=== PATIENT | female | born 1980 | race Caucasian/White ===

== ENCOUNTER 2017-08-16 16:55 | Emergency (ER) | payer OTHER, SELFPAY ==
[2017-08-16 17:08] VITALS: BP 137/79; PULSE 85; RESP 20; TEMP 36.9; O2SAT 98; BMI 22.2
--- NOTE | 2017-08-16 17:20 | ED.SOB ---
HPI - SOB/Dyspnea <Hui Fermin PA-C - Last Filed: 08/16/17 21:48> General Chief Complaint: Shortness of Breath/Dyspnea Stated Complaint: SOB,THROAT SCRATCHY AND TIGHT, 17WKS PREG Time Seen by Provider: 08/16/17 17:01 Source: patient Mode of arrival: ambulatory Limitations: no limitations History of Present Illness This 37-year-old female is 17 weeks , and presents to the ED today with what she describes as some pelvic cramping without bleeding. She states that she has had some tightness and pressure through her but these cramps are little bit stronger. She has not had any spotting. She states that she has also had a more persistent rash today than usual (she gets frequent hives and has had them intermittently in the last couple of weeks close). She has also had persistent itching all over, and this usually resolves quickly. She states that she is not wheezing or having any chest pain but she feels sort of an air hunger sensation like she can't quite get a deep breath. All of this started this morning. She states that she had 1 fever up to 102, but nothing persistent and this is not unusual for her. She denies any new back pain. She denies any urinary symptoms. She states that she is undergoing rheumatologic workup for her fevers, rashes, and joint pain, no specific diagnosis at this point. She has not had any new pain or swelling in the extremities today including her calves. She states that she had a similar episode that 1 of her appointments at and had high blood pressure at the time so is being monitored for preeclampsia and was started on baby aspirin once a day which she is currently taking. Has stopped other medications. She states that she has not been found to have any clotting disorder, no family history of rheumatologic disease or blood clotting disorders. She states that her symptoms started sometime after her service and had never had any prior. Related Data Home Medications Medication Instructions Recorded Confirmed vit-iron fum-folic ac 0.5 tab PO BID #0 05/22/17 08/16/17 [Mynatal] aspirin [Aspir-81] 81 mg PO DAILY 08/16/17 08/16/17 Previous Rx's Medication Instructions Recorded cephalexin [Keflex] 500 mg PO Q6H 4 Days #16 cap 08/16/17 Allergies Allergy/AdvReac Type Severity Reaction Status Date / Time bee pollen [BEE POLLEN] Allergy Severe Anaphylaxis Verified 08/16/17 17:13 hydromorphone [From DILAUDID] AdvReac Severe Rash Verified 08/16/17 17:13 ondansetron AdvReac Severe Rash Verified 08/16/17 17:13 [From ZOFRAN ( HYDROCHLORIDE)] OLIVE Allergy Unknown Uncoded 08/16/17 17:13 Review of Systems <Hui Fermin PA-C - Last Filed: 08/16/17 21:48> Review of Systems All systems reviewed & are unremarkable except as noted in HPI and below Exam <Hui Fermin PA-C - Last Filed: 08/16/17 21:48> Narrative Exam Narrative: GENERAL APPEARANCE: Patient sitting comfortably, in no distress. HEENT: PERRL, EOMI, normal oropharynx NECK: Supple, trachea midline, no masses LUNGS: Clear to auscultation bilaterally. No cough on exam. HEART: Rate and rhythm regular, normal S1 and S2, no S3 or S4. ABDOMEN: Soft, nondistended, bowel sounds present x 4 quadrants, no masses palpable, no hepatosplenomegaly. Mild generalized lower quadrant tenderness without guarding or rebound, no CVAT EXTREMITIES: No edema, no cyanosis. No calf tenderness DERMATOLOGIC: Flushing over the mid anterior central chest and neck. None on the face, elsewhere on the trunk or extremities NEUROLOGIC: Alert and oriented with normal speech and coordination Initial Vital Signs Initial Vital Signs: Vital Signs Temperature 98.4 F 08/16/17 17:08 Pulse Rate 85 08/16/17 17:08 Respiratory Rate 20 08/16/17 17:08 Blood Pressure 137/79 H 08/16/17 17:08 Pulse Oximetry 98 08/16/17 17:08 <Liberty Arevalo DO - Last Filed: 08/17/17 07:56> Initial Vital Signs Initial Vital Signs: Vital Signs Temperature 98.4 F 08/16/17 17:08 Pulse Rate 85 08/16/17 17:08 Respiratory Rate 20 08/16/17 17:08 Blood Pressure 137/79 H 08/16/17 17:08 Pulse Oximetry 98 08/16/17 17:08 Course <Hui Fermin PA-C - Last Filed: 08/16/17 21:48> Hospital Course: Patient reported feeling significantly improved after fluids and Benadryl. Her neck and chest rash had largely resolved and she was able to ambulate comfortably without dyspnea. Suspect this is likely related to some type of exposure given the ongoing symptoms that she has had. Also suspect that given her sizable fibroid as well as enlarging , this may create more pelvic pressure and exacerbate typical pain. I think unlikely that her asymptomatic bacteriuria contributes to this but we will start antibiotic. She feels comfortable monitoring at home and agrees to return if any acutely worsening symptoms again. Dr. Arevalo evaluated patient as well today and was agreeable with this treatment plan. Orders Ordered: Discontinued Medications Cefazolin Sodium (Keflex) 2 bottle MISC SEEINSTR ONE Stop: 08/16/17 19:40 Last Admin: 08/16/17 19:46 Dose: 2 bottle Diphenhydramine HCl (Benadryl) 25 mg IV NOW ONE Stop: 08/16/17 17:21 Last Admin: 08/16/17 17:37 Dose: 25 mg Fosfomycin Tromethamine (Monurol) 3 gm PO NOW ONE Stop: 08/16/17 19:28 Last Admin: 08/16/17 19:45 Dose: Sodium Chloride (Normal Saline 0.9%) 1,000 mls @ 1,000 mls/hr IV BOLUS ONE Stop: 08/16/17 18:19 Last Infusion: 08/16/17 19:15 Dose: 0 mls/hr Admin: 08/16/17 17:37 Dose: 1,000 mls/hr Sodium Chloride (Normal Saline 0.9%) 1,000 mls @ 1,000 mls/hr IV BOLUS ONE Stop: 08/16/17 19:14 Last Admin: 08/16/17 19:44 Dose: Vital Signs - 8 hr 08/16/17 17:08 08/16/17 17:42 08/16/17 18:02 Temperature 98.4 F Pulse Rate 85 90 76 Respiratory Rate 20 18 Blood Pressure 137/79 H Blood Pressure [Left Arm] 118/70 114/71 Pulse Oximetry 98 100 100 08/16/17 19:36 Temperature Pulse Rate 80 Respiratory Rate 18 Blood Pressure Blood Pressure [Left Arm] 114/71 Pulse Oximetry 100 <Liberty Arevalo, - Last Filed: 08/17/17 07:56> Orders Ordered: Discontinued Medications Cefazolin Sodium (Keflex) 2 bottle MISC SEEINSTR ONE Stop: 08/16/17 19:40 Last Admin: 08/16/17 19:46 Dose: 2 bottle Diphenhydramine HCl (Benadryl) 25 mg IV NOW ONE Stop: 08/16/17 17:21 Last Admin: 08/16/17 17:37 Dose: 25 mg Fosfomycin Tromethamine (Monurol) 3 gm PO NOW ONE Stop: 08/16/17 19:28 Last Admin: 08/16/17 19:45 Dose: Sodium Chloride (Normal Saline 0.9%) 1,000 mls @ 1,000 mls/hr IV BOLUS ONE Stop: 08/16/17 18:19 Last Infusion: 08/16/17 19:15 Dose: 0 mls/hr Admin: 08/16/17 17:37 Dose: 1,000 mls/hr Sodium Chloride (Normal Saline 0.9%) 1,000 mls @ 1,000 mls/hr IV BOLUS ONE Stop: 08/16/17 19:14 Last Admin: 08/16/17 19:44 Dose: Vital Signs - 8 hr 08/16/17 17:08 08/16/17 17:42 08/16/17 18:02 Temperature 98.4 F Pulse Rate 85 90 76 Respiratory Rate 20 18 Blood Pressure 137/79 H Blood Pressure [Left Arm] 118/70 114/71 Pulse Oximetry 98 100 100 08/16/17 19:36 Temperature Pulse Rate 80 Respiratory Rate 18 Blood Pressure Blood Pressure [Left Arm] 114/71 Pulse Oximetry 100 MDM - SOB/Dyspnea <Hui Fermin PA-C - Last Filed: 08/16/17 21:48> Lab Data Attestation: I reviewed the patient's lab results. Result diagrams: 08/16/17 17:35 08/16/17 17:35 Lab Results 08/16/17 08/16/17 Range/Units 17:35 17:35 WBC 10.0 (4.5-11.0) X10^3/uL RBC 3.88 L (4.0-5.2) X10^6/uL Hgb 12.2 (12.0-16.0) g/dL Hct 34.4 L (36-46) % MCV 88.7 (80-100) fL MCH 31.5 (26-34) PG MCHC 35.5 (30-36) % RDW 13.2 (11.6-14.8) % Plt Count 221 (150-400) X10^3/uL Neut % (Auto) Not Reportable Lymph % (Auto) Not Reportable [place] % (Auto) Not Reportable Eos % (Auto) Not Reportable Baso % (Auto) Not Reportable Total Counted 100 Seg Neutrophils % 71.0 H (38-70) % Band Neutrophils % 4.0 (3-7) % Lymphocytes % (Manual) 16.0 L (25-45) % Monocytes % (Manual) 7.0 (2-11) % Eosinophils % (Manual) 1.0 L (2-4) % Myelocytes % 1.0 H (-0) % Neutrophils # (Manual) 7500 H (9100-6555) /uL RBC Morphology Normal morphology Sodium 140 (137-145) mmol/L Potassium 3.9 (3.4-5.1) mmol/L Chloride 105.0 (98-107) mmol/L Carbon Dioxide 23.0 (22-32) mmol/L BUN 10.0 (7-17) mg/dL Creatinine 0.50 L (0.52-1.04) mg/dL Estimated GFR > 60.0 (>60) mL/min BUN/Creatinine Ratio 20.0 (6-22) Glucose 117 H (70-100) mg/dL Calcium 9.2 (8.4-10.2) mg/dL Total Bilirubin 0.4 (0.2-1.3) mg/dL AST 20 (14-36) IU/L ALT 15 (9-52) IU/L Alkaline Phosphatase 41 (38-126) U/L Total Protein 6.7 (6.3-8.2) g/dL Albumin 3.6 (3.5-5.0) g/dL Globulin 3.1 (1.7-4.1) g/dL Albumin/Globulin Ratio 1.2 (1.0-2.8) POC urinalysis positive for leuk. Micro shows many bacteria. Urine cultured Imaging Data Venous US: Radiologist's impression: View Report History [place] [id number] Ultrasound Report Signed Patient: Kirstie Myrick MR#: [id number] : 1980 Acct:[id number] Age/Sex: 37 / F Date of Service: 08/16/17 Loc: ED Accession Number: [id number] Procedure: US periph venous low extrem bi Ordering Provider: Hui Fermin P.A-C PROCEDURE: US PERIPH VENOUS LOW EXTREM BI INDICATIONS: DYSPNIA; TECHNIQUE: Real-time imaging, as well as color and pulse Doppler interrogation, were performed of the deep veins of both legs from the inguinal ligament to the popliteal fossa. COMPARISON: None. FINDINGS: The deep veins are normally compressible, and free of intraluminal thrombus. Color and pulse Doppler demonstrate normal phasic intravascular flow. There is normal augmentation response to distal compression maneuver. IMPRESSION: No DVT found over the lower extremities bilaterally. Dictated by: Berhane Alvarez M.D. on 08/16/2017 at 19:13 Approved by: Berhane Alvarez M.D. on 08/16/2017 at 19:13 OB US: Radiologist's impression: [place] [address] Ultrasound Report Signed Patient: Kirstie Myrick MR#: [id number] : 1980 Acct:[id number] Age/Sex: 37 / F Date of Service: 08/16/17 Loc: ED Accession Number: [id number] Procedure: US OB limited Ordering Provider: Hui Fermin P.A-C PROCEDURE: US OB LIMITED INDICATIONS: CRAMPING OUTSIDE/PRIOR DATING DATA: Last menstrual period (LMP): 04/17/17. LMP-based estimated date of delivery (KIM): 01/22/18. First dating scan (date and location): 05/22/17. Estimated date of delivery (KIM) from first dating scan: 01/19/18. TECHNIQUE: Real-time scanning was performed of the fetus, with image documentation. Endovaginal scanning: Not needed for this study COMPARISON: None. FINDINGS: A single living intrauterine gestation is present. Note also is made of a 9.1 x 6.7 cm left uterine fibroid, previously documented. Presentation: Breech. Placenta: Placental position is posterior, without previa. Amniotic fluid index: 14.1 cm, normal range is 5-24 cm. heart rate: 145 beats per minute. Maternal cervical canal: 3.3 cm long. Normal lower limit is 2.5 cm. Estimated gestational age from initial scan: 17 weeks 5 days. IMPRESSION: A source of current symptoms is not seen. Viable intrauterine gestation. No sign of placenta previa or placental abruption. Prior relatively prominent uterine fibroid measuring up to 9.1 x 6.7 cm is present. Dictated by: Berhane Alvarez M.D. on 08/16/2017 at 19:11 Approved by: Berhane Alvarez M.D. on 08/16/2017 at 19:12 <Liberty Arevalo DO - Last Filed: 08/17/17 07:56> Lab Data Lab Results 08/16/17 08/16/17 Range/Units 17:35 17:35 WBC 10.0 (4.5-11.0) X10^3/uL RBC 3.88 L (4.0-5.2) X10^6/uL Hgb 12.2 (12.0-16.0) g/dL Hct 34.4 L (36-46) % MCV 88.7 (80-100) fL MCH 31.5 (26-34) PG MCHC 35.5 (30-36) % RDW 13.2 (11.6-14.8) % Plt Count 221 (150-400) X10^3/uL Neut % (Auto) Not Reportable Lymph % (Auto) Not Reportable [place] % (Auto) Not Reportable Eos % (Auto) Not Reportable Baso % (Auto) Not Reportable Total Counted 100 Seg Neutrophils % 71.0 H (38-70) % Band Neutrophils % 4.0 (3-7) % Lymphocytes % (Manual) 16.0 L (25-45) % Monocytes % (Manual) 7.0 (2-11) % Eosinophils % (Manual) 1.0 L (2-4) % Myelocytes % 1.0 H (-0) % Neutrophils # (Manual) 7500 H (6054-1148) /uL RBC Morphology Normal morphology Sodium 140 (137-145) mmol/L Potassium 3.9 (3.4-5.1) mmol/L Chloride 105.0 (98-107) mmol/L Carbon Dioxide 23.0 (22-32) mmol/L BUN 10.0 (7-17) mg/dL Creatinine 0.50 L (0.52-1.04) mg/dL Estimated GFR > 60.0 (>60) mL/min BUN/Creatinine Ratio 20.0 (6-22) Glucose 117 H (70-100) mg/dL Calcium 9.2 (8.4-10.2) mg/dL Total Bilirubin 0.4 (0.2-1.3) mg/dL AST 20 (14-36) IU/L ALT 15 (9-52) IU/L Alkaline Phosphatase 41 (38-126) U/L Total Protein 6.7 (6.3-8.2) g/dL Albumin 3.6 (3.5-5.0) g/dL Globulin 3.1 (1.7-4.1) g/dL Albumin/Globulin Ratio 1.2 (1.0-2.8) Discharge Plan Departure Patient Disposition: Home, Self-Care Clinical Impression: SOB (shortness of breath), Abdominal pain during intrauterine , [place], Asymptomatic bacteriuria during Discharge Date/Time: 08/16/17 19:57 Interventions: ED Discharge Assessment Last Done: 08/16/17 19:56 Instructions: DI for Abdominal Pain -- Early , How to Manage Shortness of Breath Activity Restrictions/Additional Instructions: As we talked about, you should return if you are having any acutely worsening symptoms again. It is safe to take [id number]-[id number] Benadryl as needed for your rash. This may help breathing as we saw today if they are related to an exposure or allergen. You should take 2 tablets of the cephalexin we gave you every 6 hr until you pickup your prescription on Thursday, then 1 tablet at a time. We are sending off your urine for a culture to make sure this antibiotic is effective (retreat bacteria in the urine during even if it is not causing symptoms). I suspect that your abdominal cramping may be related to growing as well as your fibroid. Please continue to monitor closely and return if worsening, or new symptoms such as spotting or bleeding. Prescriptions: New cephalexin [Keflex] 500 mg capsule 500 mg PO Q6H 4 Days Qty: 16 RF: 0 No Action vit-iron fum-folic ac [Mynatal] 1 EACH capsule 0.5 tab PO BID Qty: 0 RF: 0 aspirin [Aspir-81] 81 mg Tablet,Delayed Release (Dr/Ec) 81 mg PO DAILY RF: 0 Referrals: Lou TODD [Other] MATERNAL MEDICINE [Outside] <Liberty Arevalo DO - Last Filed: 08/17/17 07:56> Cosign ED Attending Cosblairature Attestation: I was immediately available in the department for consultation. Documentation has been reviewed. I agree with assessment and plan.
--- NOTE | 2017-08-16 17:25 | DI.US.S_ITS ---
PROCEDURE: US PERIPH VENOUS LOW EXTREM BI INDICATIONS: DYSPNIA; TECHNIQUE: Real-time imaging, as well as color and pulse Doppler interrogation, were performed of the deep veins of both legs from the inguinal ligament to the popliteal fossa. COMPARISON: None. FINDINGS: The deep veins are normally compressible, and free of intraluminal thrombus. Color and pulse Doppler demonstrate normal phasic intravascular flow. There is normal augmentation response to distal compression maneuver. IMPRESSION: No DVT found over the lower extremities bilaterally. Dictated by: Berhane Alvarez M.D. on 08/16/2017 at 19:13 Approved by: Berhane Alvarez M.D. on 08/16/2017 at 19:13
--- NOTE | 2017-08-16 17:30 | ED_ITS ---
HPI - SOB/Dyspnea <Hui Fermin PA-C - Last Filed: 08/16/17 21:48> General Chief Complaint: Shortness of Breath/Dyspnea Stated Complaint: SOB,THROAT SCRATCHY AND TIGHT, 17WKS PREG Time Seen by Provider: 08/16/17 17:01 Source: patient Mode of arrival: ambulatory Limitations: no limitations History of Present Illness This 37-year-old female is 17 weeks , and presents to the ED today with what she describes as some pelvic cramping without bleeding. She states that she has had some tightness and pressure through her but these cramps are little bit stronger. She has not had any spotting. She states that she has also had a more persistent rash today than usual (she gets frequent hives and has had them intermittently in the last couple of weeks close). She has also had persistent itching all over, and this usually resolves quickly. She states that she is not wheezing or having any chest pain but she feels sort of an air hunger sensation like she can't quite get a deep breath. All of this started this morning. She states that she had 1 fever up to 102, but nothing persistent and this is not unusual for her. She denies any new back pain. She denies any urinary symptoms. She states that she is undergoing rheumatologic workup for her fevers, rashes, and joint pain, no specific diagnosis at this point. She has not had any new pain or swelling in the extremities today including her calves. She states that she had a similar episode that 1 of her appointments at and had high blood pressure at the time so is being monitored for preeclampsia and was started on baby aspirin once a day which she is currently taking. Has stopped other medications. She states that she has not been found to have any clotting disorder, no family history of rheumatologic disease or blood clotting disorders. She states that her symptoms started sometime after her service and had never had any prior. Related Data Home Medications Medication Instructions Recorded Confirmed vit-iron fum-folic ac 0.5 tab PO BID #0 05/22/17 08/16/17 [Mynatal] aspirin [Aspir-81] 81 mg PO DAILY 08/16/17 08/16/17 Previous Rx's Medication Instructions Recorded cephalexin [Keflex] 500 mg PO Q6H 4 Days #16 cap 08/16/17 Allergies Allergy/AdvReac Type Severity Reaction Status Date / Time bee pollen [BEE POLLEN] Allergy Severe Anaphylaxis Verified 08/16/17 17:13 hydromorphone [From DILAUDID] AdvReac Severe Rash Verified 08/16/17 17:13 ondansetron AdvReac Severe Rash Verified 08/16/17 17:13 [From ZOFRAN ( HYDROCHLORIDE)] OLIVE Allergy Unknown Uncoded 08/16/17 17:13 Review of Systems <Hui Fermin PA-C - Last Filed: 08/16/17 21:48> Review of Systems All systems reviewed & are unremarkable except as noted in HPI and below Exam <Hui Fermin PA-C - Last Filed: 08/16/17 21:48> Narrative Exam Narrative: GENERAL APPEARANCE: Patient sitting comfortably, in no distress. HEENT: PERRL, EOMI, normal oropharynx NECK: Supple, trachea midline, no masses LUNGS: Clear to auscultation bilaterally. No cough on exam. HEART: Rate and rhythm regular, normal S1 and S2, no S3 or S4. ABDOMEN: Soft, nondistended, bowel sounds present x 4 quadrants, no masses palpable, no hepatosplenomegaly. Mild generalized lower quadrant tenderness without guarding or rebound, no CVAT EXTREMITIES: No edema, no cyanosis. No calf tenderness DERMATOLOGIC: Flushing over the mid anterior central chest and neck. None on the face, elsewhere on the trunk or extremities NEUROLOGIC: Alert and oriented with normal speech and coordination Initial Vital Signs Initial Vital Signs: Vital Signs Temperature 98.4 F 08/16/17 17:08 Pulse Rate 85 08/16/17 17:08 Respiratory Rate 20 08/16/17 17:08 Blood Pressure 137/79 H 08/16/17 17:08 Pulse Oximetry 98 08/16/17 17:08 <Liberty Arevalo DO - Last Filed: 08/17/17 07:56> Initial Vital Signs Initial Vital Signs: Vital Signs Temperature 98.4 F 08/16/17 17:08 Pulse Rate 85 08/16/17 17:08 Respiratory Rate 20 08/16/17 17:08 Blood Pressure 137/79 H 08/16/17 17:08 Pulse Oximetry 98 08/16/17 17:08 Course <Hui Fermin PA-C - Last Filed: 08/16/17 21:48> Hospital Course: Patient reported feeling significantly improved after fluids and Benadryl. Her neck and chest rash had largely resolved and she was able to ambulate comfortably without dyspnea. Suspect this is likely related to some type of exposure given the ongoing symptoms that she has had. Also suspect that given her sizable fibroid as well as enlarging , this may create more pelvic pressure and exacerbate typical pain. I think unlikely that her asymptomatic bacteriuria contributes to this but we will start antibiotic. She feels comfortable monitoring at home and agrees to return if any acutely worsening symptoms again. Dr. Arevalo evaluated patient as well today and was agreeable with this treatment plan. Orders Ordered: Discontinued Medications Cefazolin Sodium (Keflex) 2 bottle MISC SEEINSTR ONE Stop: 08/16/17 19:40 Last Admin: 08/16/17 19:46 Dose: 2 bottle Diphenhydramine HCl (Benadryl) 25 mg IV NOW ONE Stop: 08/16/17 17:21 Last Admin: 08/16/17 17:37 Dose: 25 mg Fosfomycin Tromethamine (Monurol) 3 gm PO NOW ONE Stop: 08/16/17 19:28 Last Admin: 08/16/17 19:45 Dose: Sodium Chloride (Normal Saline 0.9%) 1,000 mls @ 1,000 mls/hr IV BOLUS ONE Stop: 08/16/17 18:19 Last Infusion: 08/16/17 19:15 Dose: 0 mls/hr Admin: 08/16/17 17:37 Dose: 1,000 mls/hr Sodium Chloride (Normal Saline 0.9%) 1,000 mls @ 1,000 mls/hr IV BOLUS ONE Stop: 08/16/17 19:14 Last Admin: 08/16/17 19:44 Dose: Vital Signs - 8 hr 08/16/17 17:08 08/16/17 17:42 08/16/17 18:02 Temperature 98.4 F Pulse Rate 85 90 76 Respiratory Rate 20 18 Blood Pressure 137/79 H Blood Pressure [Left Arm] 118/70 114/71 Pulse Oximetry 98 100 100 08/16/17 19:36 Temperature Pulse Rate 80 Respiratory Rate 18 Blood Pressure Blood Pressure [Left Arm] 114/71 Pulse Oximetry 100 <Liberty Arevalo, - Last Filed: 08/17/17 07:56> Orders Ordered: Discontinued Medications Cefazolin Sodium (Keflex) 2 bottle MISC SEEINSTR ONE Stop: 08/16/17 19:40 Last Admin: 08/16/17 19:46 Dose: 2 bottle Diphenhydramine HCl (Benadryl) 25 mg IV NOW ONE Stop: 08/16/17 17:21 Last Admin: 08/16/17 17:37 Dose: 25 mg Fosfomycin Tromethamine (Monurol) 3 gm PO NOW ONE Stop: 08/16/17 19:28 Last Admin: 08/16/17 19:45 Dose: Sodium Chloride (Normal Saline 0.9%) 1,000 mls @ 1,000 mls/hr IV BOLUS ONE Stop: 08/16/17 18:19 Last Infusion: 08/16/17 19:15 Dose: 0 mls/hr Admin: 08/16/17 17:37 Dose: 1,000 mls/hr Sodium Chloride (Normal Saline 0.9%) 1,000 mls @ 1,000 mls/hr IV BOLUS ONE Stop: 08/16/17 19:14 Last Admin: 08/16/17 19:44 Dose: Vital Signs - 8 hr 08/16/17 17:08 08/16/17 17:42 08/16/17 18:02 Temperature 98.4 F Pulse Rate 85 90 76 Respiratory Rate 20 18 Blood Pressure 137/79 H Blood Pressure [Left Arm] 118/70 114/71 Pulse Oximetry 98 100 100 08/16/17 19:36 Temperature Pulse Rate 80 Respiratory Rate 18 Blood Pressure Blood Pressure [Left Arm] 114/71 Pulse Oximetry 100 MDM - SOB/Dyspnea <Hui Fermin PA-C - Last Filed: 08/16/17 21:48> Lab Data Attestation: I reviewed the patient's lab results. Result diagrams: 08/16/17 17:35 08/16/17 17:35 Lab Results 08/16/17 08/16/17 Range/Units 17:35 17:35 WBC 10.0 (4.5-11.0) X10^3/uL RBC 3.88 L (4.0-5.2) X10^6/uL Hgb 12.2 (12.0-16.0) g/dL Hct 34.4 L (36-46) % MCV 88.7 (80-100) fL MCH 31.5 (26-34) PG MCHC 35.5 (30-36) % RDW 13.2 (11.6-14.8) % Plt Count 221 (150-400) X10^3/uL Neut % (Auto) Not Reportable Lymph % (Auto) Not Reportable [place] % (Auto) Not Reportable Eos % (Auto) Not Reportable Baso % (Auto) Not Reportable Total Counted 100 Seg Neutrophils % 71.0 H (38-70) % Band Neutrophils % 4.0 (3-7) % Lymphocytes % (Manual) 16.0 L (25-45) % Monocytes % (Manual) 7.0 (2-11) % Eosinophils % (Manual) 1.0 L (2-4) % Myelocytes % 1.0 H (-0) % Neutrophils # (Manual) 7500 H (4717-4825) /uL RBC Morphology Normal morphology Sodium 140 (137-145) mmol/L Potassium 3.9 (3.4-5.1) mmol/L Chloride 105.0 (98-107) mmol/L Carbon Dioxide 23.0 (22-32) mmol/L BUN 10.0 (7-17) mg/dL Creatinine 0.50 L (0.52-1.04) mg/dL Estimated GFR > 60.0 (>60) mL/min BUN/Creatinine Ratio 20.0 (6-22) Glucose 117 H (70-100) mg/dL Calcium 9.2 (8.4-10.2) mg/dL Total Bilirubin 0.4 (0.2-1.3) mg/dL AST 20 (14-36) IU/L ALT 15 (9-52) IU/L Alkaline Phosphatase 41 (38-126) U/L Total Protein 6.7 (6.3-8.2) g/dL Albumin 3.6 (3.5-5.0) g/dL Globulin 3.1 (1.7-4.1) g/dL Albumin/Globulin Ratio 1.2 (1.0-2.8) POC urinalysis positive for leuk. Micro shows many bacteria. Urine cultured Imaging Data Venous US: Radiologist's impression: View Report History [place] [id number] Ultrasound Report Signed Patient: Kirstie Myrick MR#: [id number] : 1980 Acct:[id number] Age/Sex: 37 / F Date of Service: 08/16/17 Loc: ED Accession Number: [id number] Procedure: US periph venous low extrem bi Ordering Provider: Hui Fermin P.A-C PROCEDURE: US PERIPH VENOUS LOW EXTREM BI INDICATIONS: DYSPNIA; TECHNIQUE: Real-time imaging, as well as color and pulse Doppler interrogation, were performed of the deep veins of both legs from the inguinal ligament to the popliteal fossa. COMPARISON: None. FINDINGS: The deep veins are normally compressible, and free of intraluminal thrombus. Color and pulse Doppler demonstrate normal phasic intravascular flow. There is normal augmentation response to distal compression maneuver. IMPRESSION: No DVT found over the lower extremities bilaterally. Dictated by: Berhane Alvarez M.D. on 08/16/2017 at 19:13 Approved by: Berhane Alvarez M.D. on 08/16/2017 at 19:13 OB US: Radiologist's impression: [place] [address] Ultrasound Report Signed Patient: Kirstie Myrick MR#: [id number] : 1980 Acct:[id number] Age/Sex: 37 / F Date of Service: 08/16/17 Loc: ED Accession Number: [id number] Procedure: US OB limited Ordering Provider: Hui Fermin P.A-C PROCEDURE: US OB LIMITED INDICATIONS: CRAMPING OUTSIDE/PRIOR DATING DATA: Last menstrual period (LMP): 04/17/17. LMP-based estimated date of delivery (KIM): 01/22/18. First dating scan (date and location): 05/22/17. Estimated date of delivery (KIM) from first dating scan: 01/19/18. TECHNIQUE: Real-time scanning was performed of the fetus, with image documentation. Endovaginal scanning: Not needed for this study COMPARISON: None. FINDINGS: A single living intrauterine gestation is present. Note also is made of a 9.1 x 6.7 cm left uterine fibroid, previously documented. Presentation: Breech. Placenta: Placental position is posterior, without previa. Amniotic fluid index: 14.1 cm, normal range is 5-24 cm. heart rate: 145 beats per minute. Maternal cervical canal: 3.3 cm long. Normal lower limit is 2.5 cm. Estimated gestational age from initial scan: 17 weeks 5 days. IMPRESSION: A source of current symptoms is not seen. Viable intrauterine gestation. No sign of placenta previa or placental abruption. Prior relatively prominent uterine fibroid measuring up to 9.1 x 6.7 cm is present. Dictated by: Berhane Alvarez M.D. on 08/16/2017 at 19:11 Approved by: Berhane Alvarez M.D. on 08/16/2017 at 19:12 <Liberty Arevalo DO - Last Filed: 08/17/17 07:56> Lab Data Lab Results 08/16/17 08/16/17 Range/Units 17:35 17:35 WBC 10.0 (4.5-11.0) X10^3/uL RBC 3.88 L (4.0-5.2) X10^6/uL Hgb 12.2 (12.0-16.0) g/dL Hct 34.4 L (36-46) % MCV 88.7 (80-100) fL MCH 31.5 (26-34) PG MCHC 35.5 (30-36) % RDW 13.2 (11.6-14.8) % Plt Count 221 (150-400) X10^3/uL Neut % (Auto) Not Reportable Lymph % (Auto) Not Reportable [place] % (Auto) Not Reportable Eos % (Auto) Not Reportable Baso % (Auto) Not Reportable Total Counted 100 Seg Neutrophils % 71.0 H (38-70) % Band Neutrophils % 4.0 (3-7) % Lymphocytes % (Manual) 16.0 L (25-45) % Monocytes % (Manual) 7.0 (2-11) % Eosinophils % (Manual) 1.0 L (2-4) % Myelocytes % 1.0 H (-0) % Neutrophils # (Manual) 7500 H (4595-0352) /uL RBC Morphology Normal morphology Sodium 140 (137-145) mmol/L Potassium 3.9 (3.4-5.1) mmol/L Chloride 105.0 (98-107) mmol/L Carbon Dioxide 23.0 (22-32) mmol/L BUN 10.0 (7-17) mg/dL Creatinine 0.50 L (0.52-1.04) mg/dL Estimated GFR > 60.0 (>60) mL/min BUN/Creatinine Ratio 20.0 (6-22) Glucose 117 H (70-100) mg/dL Calcium 9.2 (8.4-10.2) mg/dL Total Bilirubin 0.4 (0.2-1.3) mg/dL AST 20 (14-36) IU/L ALT 15 (9-52) IU/L Alkaline Phosphatase 41 (38-126) U/L Total Protein 6.7 (6.3-8.2) g/dL Albumin 3.6 (3.5-5.0) g/dL Globulin 3.1 (1.7-4.1) g/dL Albumin/Globulin Ratio 1.2 (1.0-2.8) Discharge Plan Departure Patient Disposition: Home, Self-Care Clinical Impression: SOB (shortness of breath), Abdominal pain during intrauterine , [place], Asymptomatic bacteriuria during Discharge Date/Time: 08/16/17 19:57 Interventions: ED Discharge Assessment Last Done: 08/16/17 19:56 Instructions: DI for Abdominal Pain -- Early , How to Manage Shortness of Breath Activity Restrictions/Additional Instructions: As we talked about, you should return if you are having any acutely worsening symptoms again. It is safe to take [id number] Benadryl as needed for your rash. This may help breathing as we saw today if they are related to an exposure or allergen. You should take 2 tablets of the cephalexin we gave you every 6 hr until you pickup your prescription on Thursday, then 1 tablet at a time. We are sending off your urine for a culture to make sure this antibiotic is effective (retreat bacteria in the urine during even if it is not causing symptoms). I suspect that your abdominal cramping may be related to growing as well as your fibroid. Please continue to monitor closely and return if worsening, or new symptoms such as spotting or bleeding. Prescriptions: New cephalexin [Keflex] 500 mg capsule 500 mg PO Q6H 4 Days Qty: 16 RF: 0 No Action vit-iron fum-folic ac [Mynatal] 1 EACH capsule 0.5 tab PO BID Qty: 0 RF: 0 aspirin [Aspir-81] 81 mg Tablet,Delayed Release (Dr/Ec) 81 mg PO DAILY RF: 0 Referrals: Lou TODD [Other] MATERNAL MEDICINE [Outside] <Liberty Arevalo DO - Last Filed: 08/17/17 07:56> Cosign ED Attending Cosblairature Attestation: I was immediately available in the department for consultation. Documentation has been reviewed. I agree with assessment and plan.
[2017-08-16] MEDS: SODIUM CHLORIDE 0.9% 1,000 ML 1000 ML IV (17:37)
[2017-08-16] MEDS: diphenhydrAMINE 50 MG/ML VIAL 25 MG IV (17:37)
[2017-08-16 17:42] VITALS: BP 118/70; PULSE 90; RESP 18; O2SAT 100
[2017-08-16 17:54] LABS: Hemoglobin 12.2 g/dL (12.0-16.0)
[2017-08-16 17:58] LABS: Hematocrit 34.4 % (36-46); Mean Corpuscular HGB Conc 35.5 % (30-36); Mean Corpuscular Hemoglobin 31.5 PG (26-34); Mean Corpuscular Volume 88.7 fL (80-100); Platelet Count 221 X10^3/uL (150-400); Red Blood Cell Count 3.88 X10^6/uL (4.0-5.2); Red Cell Distribution Width 13.2 % (11.6-14.8)
[2017-08-16 17:59] LABS: Alanine Aminotransferase 15 IU/L (9-52); Albumin 3.6 g/dL (3.5-5.0); Albumin Globulin Ratio 1.2 (1.0-2.8); Alkaline Phosphatase 41 U/L (38-126); Aspartate Aminotransferase 20 IU/L (14-36); Bilirubin Total 0.4 mg/dL (0.2-1.3); Calcium 9.2 mg/dL (8.4-10.2); Estimated Glomerular Filt Rate > 60.0 mL/min (>60); Globulin 3.1 g/dL (1.7-4.1); Glucose 117 mg/dL (70-100); HEMOLYSIS < 15 (0-50); Potassium 3.9 mmol/L (3.4-5.1); Sodium 140 mmol/L (137-145); Total Protein 6.7 g/dL (6.3-8.2)
[2017-08-16 18:00] LABS: Add Manual Diff / Slide Review YES
[2017-08-16 18:02] VITALS: BP 114/71; PULSE 76; O2SAT 100
[2017-08-16 18:43] LABS: Neutrophils Absolute Manual 7500 /uL (3000-5900); Total Cells Counted 100
[2017-08-16 18:44] LABS: RBC Morphology Normal Morphology
[2017-08-16 19:36] VITALS: BP 114/71; PULSE 80; RESP 18; O2SAT 100
[2017-08-16] MEDS: cephALEXin 250 MG PREPACK 2 BOTTLE MISC (19:46)
== END 2017-08-16 19:57 | disposition home or self-care (01) ==
PROVIDERS: Emergency Provider Internal Medicine
DX: R06.02 Shortness of breath (principal); O26.899 Other specified pregnancy related conditions, unspecified trimester; R10.9 Unspecified abdominal pain; O99.89 Other specified diseases and conditions complicating pregnancy, childbirth and the puerperium; R21 Rash and other nonspecific skin eruption; R82.71 Bacteriuria
CPT/HCPCS: 36591; 76815; 80053; 81003; 85025; 93970; 96361; 96374; 99283; 99284; J1200

== ENCOUNTER 2018-04-08 10:54 | Emergency (ER) | payer OTHER, SELFPAY ==
--- NOTE | 2018-04-08 11:04 | DI.US.S_ITS ---
PROCEDURE: US PELVIC COMPLETE INDICATIONS: vaginal bleeding TECHNIQUE: Real-time scanning was performed of the pelvic organs, with image documentation. Additional endovaginal scanning was necessary due to incomplete visualization of the adnexal and endometrial structures by transabdominal scanning. COMPARISON: [facility], US, US OB LIMITED, 08/16/2017, 18:12. [facility], US, PELVIS SONO TRANSVAGINAL (PNL), 06/10/2011, 11:20. [facility], CT, ABDOMEN/PELVIS WITH CONTRAST, 01/04/2013, 21:24. FINDINGS: Transabdominal scanning: Limited scanning through the kidneys shows no hydronephrosis. No pathologic free abdominal or pelvic fluid. Endovaginal scanning: Uterus: The uterus is enlarged and diffusely heterogeneous, measuring 11.6 x 6.9 x 10.2 cm, which may be within normal limits, given the patient's 3 months state. There is a dominant fibroid identified on the anterior aspect of the uterus to the left of midline that measures 6.1 x 4.2 x 4.3 cm, which is smaller in size on the current study, compared with the prior ultrasound, previously measuring 9.1 x 6.7 cm. No new fibroids are evident. Endometrium is thickened at 17 mm in maximal combined dimension. A single vessel is seen along the posterior aspect of the endometrium without a definable polyp evident. This vascular structure extends through the region of the cervix. Ovaries: The right ovary measures 2.6 x 1.4 x 1.4 cm. The left ovary measures 3.6 x 2.4 x 2.9 cm. Both ovaries are normal in size without cystic or solid mass evident. Blood flow is demonstrated to both ovaries. IMPRESSION: 1. Borderline thickened endometrium, containing a long vascular structure that extends from the cervix into the endometrium without a definite endometrial polyp evident. The clinical significance of this vessel is uncertain. However, retained products of conception or an unusual polyp may present this way. MRI with intravenous contrast versus saline infusion hysterosonogram may be helpful for better evaluation. 2. Unremarkable ovaries. 3. Moderate-sized intramural uterine fibroid has decreased in size since 08/16/17. Dictated by: Axel Rodriguez M.D. on 04/08/2018 at 11:38 Approved by: Axel Rodrgiuez M.D. on 04/08/2018 at 11:47
[2018-04-08 11:08] VITALS: BP 118/72; PULSE 60; RESP 17; TEMP 36.7; O2SAT 100; BMI 21.6
[2018-04-08 11:37] LABS: Add Manual Diff / Slide Review NO; Basophils Absolute Auto 100 /uL (0-100); Basophils Percent Auto 0.9 % (0-2); Eosinophils Absolute Auto 100 /uL (0-450); Eosinophils Percent Auto 1.5 % (2-4); Hemoglobin 12.7 g/dL (12.0-16.0); Lymphocytes Absolute Auto 1800 /uL (1100-4500); Lymphocytes Percent Auto 23.8 % (25-40); Mean Corpuscular HGB Conc 32.6 % (30-36); Mean Corpuscular Hemoglobin 27.1 PG (26-34); Mean Corpuscular Volume 83.2 fL (80-100); Monocytes Absolute Auto 800 /uL (0-900); Monocytes Percent Auto 10.9 % (3-14); Neutrophils Absolute Auto 4700 /uL (1500-7000); Neutrophils Percent Auto 62.9 % (50-75); Platelet Count 262 X10^3/uL (150-400); Red Blood Cell Count 4.69 X10^6/uL (4.0-5.2); Red Cell Distribution Width 17.2 % (11.6-14.8); White Blood Cell Count 7.4 X10^3/uL (4.5-11.0)
--- NOTE | 2018-04-08 11:38 | ED.FEMALEGU ---
HPI - Female Genitourinary General Chief complaint: Vaginal Bleeding Stated complaint: VAGINAL BLEEDING Time Seen by Provider: 04/08/18 11:04 Source: patient and family Mode of arrival: ambulatory Limitations: no limitations History of Present Illness HPI Narrative: 38-year-old female, nonsmoker with an unknown connective tissue disorder presents to the emergency department with a chief complaint heavy, painful vaginal bleeding since this morning. She delivered a child by 3 months ago and this is her 2nd menstrual cycle since her delivery. The 1st was normal in duration and severity, this has become quite heavy as she has blood through multiple super absorbent tampons this morning. She has significant pelvic cramping. She has become dizzy and lightheaded. She takes no blood thinners. She denies fever or shaking chills Complaint: vaginal bleeding Related Data Home Medications Medication Instructions Recorded Confirmed vit-iron fum-folic ac 0.5 tab PO BID #0 05/22/17 08/16/17 [Mynatal] aspirin [Aspir-81] 81 mg PO DAILY 08/16/17 08/16/17 Previous Rx's Medication Instructions Recorded hydrocodone-acetaminophen 1 tab PO Q4-6H PRN #10 tab 04/08/18 methylergonovine [Methergine] 0.2 mg PO Q4HR #6 tab 04/08/18 ondansetron 4 mg PO TID-QID PRN #10 tab 04/08/18 Allergies Allergy/AdvReac Type Severity Reaction Status Date / Time bee pollen [BEE POLLEN] Allergy Severe Anaphylaxis Verified 08/16/17 17:13 hydromorphone [From DILAUDID] AdvReac Severe Rash Verified 08/16/17 17:13 ondansetron AdvReac Severe Rash Verified 08/16/17 17:13 [From ZOFRAN ( HYDROCHLORIDE)] OLIVE Allergy Unknown Uncoded 08/16/17 17:13 Review of Systems Constitutional Denies chills, Denies fever(s), Denies lethargy and Denies weakness Eyes Denies change in vision, Denies eye discharge, Denies irritation and Denies loss of vision ENT Ears, Nose, Mouth, and Throat: Denies change in voice, Denies neck pain and Denies sore throat Cardiovascular Denies chest pain, Denies irregular heart rhythm, Denies lightheadedness, Denies palpitations, Denies dyspnea, Denies dyspnea on exertion and Denies orthopnea Respiratory Denies cough, Denies dyspnea, Denies dyspnea on exertion and Denies wheezing Gastrointestinal Gastrointestinal: Denies abdominal pain, Denies change in bowel habits, Denies diarrhea, Denies nausea and Denies vomiting Genitourinary Reports abnormal vaginal bleeding, Reports metrorrhagia, Denies hematuria, Denies flank pain, Denies urinary incontinence and Denies urinary urgency Musculoskeletal Denies neck pain Integumentary/Breasts Denies pruritus, Denies erythema, Denies rash and Denies wounds Neurologic Denies confusion, Denies loss of vision and Denies weakness Psychiatric Denies anxiety, Denies confusion, Denies depression, Denies homicidal ideation and Denies suicidal ideation Endocrine Denies palpitations Hematologic/Lymphatic Denies easy bruising Allergic/Immunologic Denies wheezing [facility] Medical History Erythema nodosum (Chronic) Fever (Chronic) Polyarthralgia (Chronic) Recurrent urticaria (Chronic) Pericarditis (Resolved) History of multiple miscarriages (Ruled-out) Surgical History S/P cervical spinal fusion (Resolved) Status post total hip replacement, right (Resolved) History of lumbar spinal fusion (Ruled-out) Social History Smoking Status: Never smoker Exam Narrative Exam Narrative: GENERAL: This is a well-nourished, well-developed patient, in mild distress. Obviously in pain but no diaphoresis or pallor HEAD: Atraumatic. Normocephalic. No temporal or scalp tenderness. EYES: Pupils equal round and reactive. Extraocular motions intact. No scleral icterus. No injection or drainage. ENT: Nose without bleeding, purulent drainage or septal hematoma. Throat without erythema, tonsillar hypertrophy or exudate. Uvula midline. Airway patent. NECK: Trachea midline. No JVD or lymphadenopathy. Supple, nontender, no meningeal signs. CARDIOVASCULAR: Regular rate and rhythm without murmurs, gallops, or rubs. RESPIRATORY: Clear to auscultation. Breath sounds equal bilaterally. No wheezes, rales, or rhonchi. GASTROINTESTINAL: Abdomen soft, nondistended. No hepato-splenomegaly, or palpable masses. No guarding. Suprapubic tenderness EXTREMITIES: No clubbing, cyanosis, or edema. No joint tenderness, effusion, or edema noted. BACK: Nontender without deformity or crepitance. No flank tenderness. NEURO: AOx3. SKIN: No rash or erythema. Initial Vital Signs Initial Vital Signs: Vital Signs Temperature 98.0 F 04/08/18 11:08 Pulse Rate 60 04/08/18 11:08 Respiratory Rate 17 04/08/18 11:08 Blood Pressure 118/72 04/08/18 11:08 Pulse Oximetry 100 04/08/18 11:08 Course Orders Ordered: ED Orders 04/08/18 11:25 Complete Blood Count AUTO DIFF Stat Comprehensive Metabolic Panel Stat Partial Thromboplastin Time Stat Prothrombin Time INR Stat Type and Screen Stat Discontinued Medications Sodium Chloride (Normal Saline 0.9%) 500 mls @ 1,000 mls/hr IV BOLUS ONE Stop: 04/08/18 14:08 Last Infusion: 04/08/18 14:12 Dose: 0 mls/hr Admin: 04/08/18 13:44 Dose: 1,000 mls/hr Consultations Consultation #1: Given the extent of vaginal bleeding and findings on ultrasound, Dr. Morales with gynecology was consulted. Please see his note for description of pelvic exam findings and discharge instructions Vital Signs - 8 hr 04/08/18 12:37 04/08/18 13:00 04/08/18 14:00 Pulse Rate 76 55 L 55 L Respiratory Rate 19 15 Blood Pressure [Left Arm] 112/78 120/77 110/75 Pulse Oximetry 100 99 MDM - Female Genitourinary Medical Records Attestation: I reviewed the patient's medical records. Lab Data Attestation: I reviewed the patient's lab results. Result diagrams: 04/08/18 11:25 04/08/18 11:25 Lab Results 04/08/18 04/08/18 04/08/18 Range/Units 11:25 11:25 11:25 WBC 7.4 (4.5-11.0) X10^3/uL RBC 4.69 (4.0-5.2) X10^6/uL Hgb 12.7 (12.0-16.0) g/dL Hct 39.0 (36-46) % MCV 83.2 (80-100) fL MCH 27.1 (26-34) PG MCHC 32.6 (30-36) % RDW 17.2 H (11.6-14.8) % Plt Count 262 (150-400) X10^3/uL Neut % (Auto) 62.9 (50-75) % Lymph % (Auto) 23.8 L (25-40) % Menard % (Auto) 10.9 (3-14) % Eos % (Auto) 1.5 L (2-4) % Baso % (Auto) 0.9 (0-2) % Neut # (Auto) 4700 (6503-7178) /uL Lymph # (Auto) 1800 (8663-8307) /uL Menard # (Auto) 800 (0-900) /uL Eos # (Auto) 100 (0-450) /uL Baso # (Auto) 100 (0-100) /uL PT 11.4 (10.1-12.7) SECONDS INR 1.0 (0.9-1.3) APTT 32 (26.4-36.2) SECONDS Sodium 139 (137-145) mmol/L Potassium 4.1 (3.4-5.1) mmol/L Chloride 105 (98-107) mmol/L Carbon Dioxide 24 (22-32) mmol/L BUN 18 H (7-17) mg/dL Creatinine 0.70 (0.52-1.04) mg/dL Estimated GFR > 60.0 (>60) mL/min BUN/Creatinine Ratio 25.7 H (6-22) Glucose 91 (70-100) mg/dL Calcium 9.2 (8.4-10.2) mg/dL Total Bilirubin 1.2 (0.2-1.3) mg/dL AST 27 (14-36) IU/L ALT 32 (9-52) IU/L Alkaline Phosphatase 57 (38-126) U/L Total Protein 7.7 (6.3-8.2) g/dL Albumin 4.5 (3.5-5.0) g/dL Globulin 3.2 (1.7-4.1) g/dL Albumin/Globulin Ratio 1.4 (1.0-2.8) Blood Type Antibody Screen 04/08/18 Range/Units 11:25 WBC (4.5-11.0) X10^3/uL RBC (4.0-5.2) X10^6/uL Hgb (12.0-16.0) g/dL Hct (36-46) % MCV (80-100) fL MCH (26-34) PG MCHC (30-36) % RDW (11.6-14.8) % Plt Count (150-400) X10^3/uL Neut % (Auto) (50-75) % Lymph % (Auto) (25-40) % Menard % (Auto) (3-14) % Eos % (Auto) (2-4) % Baso % (Auto) (0-2) % Neut # (Auto) (3184-1240) /uL Lymph # (Auto) (3669-6028) /uL Menard # (Auto) (0-900) /uL Eos # (Auto) (0-450) /uL Baso # (Auto) (0-100) /uL PT (10.1-12.7) SECONDS INR (0.9-1.3) APTT (26.4-36.2) SECONDS Sodium (137-145) mmol/L Potassium (3.4-5.1) mmol/L Chloride (98-107) mmol/L Carbon Dioxide (22-32) mmol/L BUN (7-17) mg/dL Creatinine (0.52-1.04) mg/dL Estimated GFR (>60) mL/min BUN/Creatinine Ratio (6-22) Glucose (70-100) mg/dL Calcium (8.4-10.2) mg/dL Total Bilirubin (0.2-1.3) mg/dL AST (14-36) IU/L ALT (9-52) IU/L Alkaline Phosphatase (38-126) U/L Total Protein (6.3-8.2) g/dL Albumin (3.5-5.0) g/dL Globulin (1.7-4.1) g/dL Albumin/Globulin Ratio (1.0-2.8) Blood Type O Positive Antibody Screen Negative Imaging Data US Pelvic: Radiologist's impression: PROCEDURE: US PELVIC COMPLETE INDICATIONS: vaginal bleeding TECHNIQUE: Real-time scanning was performed of the pelvic organs, with image documentation. Additional endovaginal scanning was necessary due to incomplete visualization of the adnexal and endometrial structures by transabdominal scanning. COMPARISON: [facility], US, US OB LIMITED, 08/16/2017, 18:12. [facility], US, PELVIS SONO TRANSVAGINAL (PNL), 06/10/2011, 11:20. [facility], CT, ABDOMEN/PELVIS WITH CONTRAST, 01/04/2013, 21:24. FINDINGS: Transabdominal scanning: Limited scanning through the kidneys shows no hydronephrosis. No pathologic free abdominal or pelvic fluid. Endovaginal scanning: Uterus: The uterus is enlarged and diffusely heterogeneous, measuring 11.6 x 6.9 x 10.2 cm, which may be within normal limits, given the patient's 3 months state. There is a dominant fibroid identified on the anterior aspect of the uterus to the left of midline that measures 6.1 x 4.2 x 4.3 cm, which is smaller in size on the current study, compared with the prior ultrasound, previously measuring 9.1 x 6.7 cm. No new fibroids are evident. Endometrium is thickened at 17 mm in maximal combined dimension. A single vessel is seen along the posterior aspect of the endometrium without a definable polyp evident. This vascular structure extends through the region of the cervix. Ovaries: The right ovary measures 2.6 x 1.4 x 1.4 cm. The left ovary measures 3.6 x 2.4 x 2.9 cm. Both ovaries are normal in size without cystic or solid mass evident. Blood flow is demonstrated to both ovaries. IMPRESSION: 1. Borderline thickened endometrium, containing a long vascular structure that extends from the cervix into the endometrium without a definite endometrial polyp evident. The clinical significance of this vessel is uncertain. However, retained products of conception or an unusual polyp may present this way. MRI with intravenous contrast versus saline infusion hysterosonogram may be helpful for better evaluation. 2. Unremarkable ovaries. 3. Moderate-sized intramural uterine fibroid has decreased in size since 08/16/17. Dictated by: Axel Rodriguez M.D. on 04/08/2018 at 11:38 Approved by: Axel Rodriguez M.D. on 04/08/2018 at 11:47 Discharge Plan Departure Patient Disposition: Home Clinical Impression: Menometrorrhagia, Dysmenorrhea Discharge Date/Time: 04/08/18 14:50 Interventions: ED Discharge Assessment Last Done: 04/08/18 14:51 Instructions: DI for Dysmenorrhea Activity Restrictions/Additional Instructions: *You have been diagnosed with [ painful heavy vaginal bleeding ] *What to do: *Take medications as directed *Follow up with your primary care provider in 2-3 days, call for an appointment. Let them know you were seen in the Emergency Department and that we ask that you be seen in follow up *Return to ER if you should have any new, worsening or concerning symptoms Prescriptions: New methylergonovine [Methergine] 0.2 mg tablet 0.2 mg PO Q4HR Qty: 6 RF: 0 hydrocodone-acetaminophen 5-325 mg tablet 1 tab PO Q4-6H PRN (Reason: pain) Qty: 10 RF: 0 ondansetron 4 mg tablet,disintegrating 4 mg PO TID-QID PRN (Reason: nausea and vomiting) Qty: 10 RF: 0 No Action vit-iron fum-folic ac [Mynatal] 1 EACH capsule 0.5 tab PO BID Qty: 0 RF: 0 aspirin [Aspir-81] 81 mg Tablet,Delayed Release (Dr/Ec) 81 mg PO DAILY RF: 0 Referrals: Mau Chilel MD [Physician] -
[2018-04-08 11:46] LABS: Prothrombin Time 11.4 SECONDS (10.1-12.7)
[2018-04-08 11:48] LABS: PTT Partial Thromboplastin Tim 32 SECONDS (26.4-36.2)
[2018-04-08 11:59] LABS: Alanine Aminotransferase 32 IU/L (9-52); Albumin 4.5 g/dL (3.5-5.0); Albumin Globulin Ratio 1.4 (1.0-2.8); Alkaline Phosphatase 57 U/L (38-126); Aspartate Aminotransferase 27 IU/L (14-36); BUN Creatinine Ratio 25.7 (6-22); Bilirubin Total 1.2 mg/dL (0.2-1.3); Blood Urea Nitrogen 18 mg/dL (7-17); Calcium 9.2 mg/dL (8.4-10.2); Carbon Dioxide 24 mmol/L (22-32); Chloride 105 mmol/L (98-107); Estimated Glomerular Filt Rate > 60.0 mL/min (>60); Globulin 3.2 g/dL (1.7-4.1); Glucose 91 mg/dL (70-100); HEMOLYSIS 16 (0-50); Potassium 4.1 mmol/L (3.4-5.1); Sodium 139 mmol/L (137-145); Total Protein 7.7 g/dL (6.3-8.2)
--- NOTE | 2018-04-08 12:14 | PC.NURSE ---
pt became diaphoretic, tired, pale during US. pt hr on arrival 59 and went to 51. cleaned pt of vaginal blood after exam. pt denies warm blanket or cool cloth. pt friend is at bedside.
[2018-04-08 12:37] VITALS: BP 112/78; PULSE 76; RESP 19; O2SAT 100
[2018-04-08 13:00] VITALS: BP 120/77; PULSE 55; RESP 15; O2SAT 99
--- NOTE | 2018-04-08 13:41 | PC.NURSE ---
stand by for dr. sharp with pelvic exam. after pt felt like she was having tingling in both hands and dizzy again. reported to dr. velasquez, rec'd orders.
[2018-04-08] MEDS: SODIUM CHLORIDE 0.9% 500 ML 1000 ML IV (13:44)
[2018-04-08 14:00] VITALS: BP 110/75; PULSE 55
== END 2018-04-08 14:50 | disposition home or self-care (01) ==
PROVIDERS: Emergency Provider Emergency Medicine
DX: N92.1 Excessive and frequent menstruation with irregular cycle (principal); N94.9 Unspecified condition associated with female genital organs and menstrual cycle
CPT/HCPCS: 36591; 76830; 76856; 80053; 85025; 85610; 85730; 86850; 86900; 86901; 99283; 99284